=== PATIENT | female | born 1995 | race Caucasian/White ===

== ENCOUNTER → 2017-02-15 | Outpatient (CLI) | payer BC, OTHER ==
[2017-02-15 13:53] LABS: LUTEINIZING HORMONE 14.7 mIU/mL; PROLACTIN 6.4 NG/ML
[2017-02-15 13:54] LABS: FOLLICLE STIMULATING HORMONE 5.9 mIU/mL
[2017-02-15 14:00] LABS: FREE T4 1.07 NG/DL (0.76-1.46); HCG, SERUM QUANTITATIVE < 1.0 MIU/ML
[2017-02-20 08:07] LABS: 17 HYDROXY PROGESTERONE 55 ng/dL (.)
== END ==
LOC: M SMT 09:49
PROVIDERS: ATTEND Advanced Practice Midwife
DX: N91.1 Secondary amenorrhea (principal)

== ENCOUNTER → 2017-03-06 | Outpatient (REF) | payer BC, OTHER | LOC: M LAB REF 13:18 | PROVIDERS: ATTEND Advanced Practice Midwife | DX: Z12.4 Encounter for screening for malignant neoplasm of cervix (principal) ==